=== PATIENT | female | born 1970 | race Caucasian/White ===

== ENCOUNTER 2020-04-19 08:29 | Day surgery (SDC) | payer OTHER ==
[~2020-04-19] VITALS: Ht 162.6 cm; Wt 93.9 kg
--- NOTE | ~2020-04-19 | OR ---
[facility] [address], [place] [address] Draft DATE OF OPERATION: 04/19/2020 SURGEON: Marizol Huddleston MD PREOPERATIVE DIAGNOSES: 1. Gastroesophageal reflux symptoms with episodic dysphagia. 2. History of tubular adenoma of colon, 2015. POSTOPERATIVE DIAGNOSES: 1. Mild antral gastritis, no evidence of esophagitis, stricture, or Frye's epithelium; poor flap valve. No sign of hiatal hernia proper. 2. Normal colon to cecum. PROCEDURES: 1. Esophagogastroduodenoscopy with biopsy. 2. Total colonoscopy to cecum. ANESTHESIA: Intravenous sedation, fentanyl 150 mcg and Versed 7 mg total. INDICATION: This 49-year-old white woman is a patient of VALENCIA Machuca. She is known to me from the past having undergone colonoscopy in 2014 at which time she was noted to have a tubular adenoma, which was excised. She has no symptoms of bleeding, diarrhea or constipation and is here for surveillance colonoscopy. Additionally, patient does have clinical symptoms suggestive of gastroesophageal reflux, which she occasionally has mild dysphagia. She occasionally takes an [id number] H2 navid, but does not take anything on a routine basis. Notably, her father had Frye's esophagus. She has no family history of colon cancer, esophageal cancer or stomach cancer. She is admitted to undergo upper endoscopy and colonoscopy. She understands the risks of bleeding, infection, and perforation. FINDINGS: On upper endoscopy, she had no evidence of stricture. There was no Frye's epithelium. There were no stigmata of eosinophilic esophagitis. There was some bile in the stomach and mild antral gastritis and the pylorus and the duodenum were normal. Colonoscopy performed showed no sign of abnormality of any sort. She had an excellent prep. PATIENT NAME: GRAHAM HENDERSON OPERATIVE REPORT DATE OF : 72 REPORT #: [id number] PHYSICIAN: MARIZOL HUDDLESTON MD PCP: MATTIE BELLE REPORT IS CONFIDENTIAL AND NOT TO BE RELEASED WITHOUT AUTHORIZATION [facility] [address], [place] [address] Draft DESCRIPTION OF PROCEDURE: The patient was brought to endoscopy suite, given topical Hurricaine spray hypopharyngeal anesthesia, placed in lateral decubitus position. She was given intravenous sedation to the point of slurred speech and nystagmus with full cardiopulmonary monitoring. A bite block was placed. An Olympus video upper endoscope was passed in the hypopharynx. The vocal cords appeared normal. Scope was advanced to the esophagus throughout its length, it was normal with no sign of stricture or neoplasm or Frye's epithelium. The scope was passed to the stomach, which was insufflated with air with some bilious fluid, which was suctioned free. Rugal folds appeared normal as did the antral motility. The pylorus was normal and scope was passed through into the duodenum, which was normal. Biopsies were obtained there to assess for celiac disease. The scope was withdrawn. A biopsy was then taken of the antrum for both NEDRA and pathologic testing. She had mild and minimal antral gastritis. Retroflexed view was undertaken showing a rather poor flap valve, but no hiatal hernia proper. Scope was straightened and withdrawn and biopsies taken of the distal esophagus and withdrawn to the mid esophagus for biopsies there as well. Further withdrawal of scope showed no sign of abnormality. Plans were then made for colonoscopy. Additional sedation was given. A digital rectal examination was performed, which showed no sign of abnormality. The Olympus video colonoscope was passed in the rectum and then manipulated throughout the colon. Ultimately intubating the cecum, the ileocecal valve and appendiceal orifice were normal. Scope was withdrawn from that point and examination throughout showed no sign of polyps, diverticular formation, colitis, or cancer. Retroflex view of the rectum was normal. Scope was removed. The patient was taken to the recovery room in good condition. CONCLUDING DIAGNOSES: 1. Mild antral gastritis, possibly bile reflux related. 2. Clinical gastroesophageal reflux without sign of stricture, neoplasm or Frye's epithelium. 3. Normal colon to cecum. PLAN: Recommend a repeat colonoscopy in 5 to 10 years sooner if clinically indicated. Consider episodic use of H2 navid or PPI for reflux type symptoms. Weight loss would be beneficial. She will return to the ongoing care of VALENCIA Machuca. PATIENT NAME: GRAHAM HENDERSON OPERATIVE REPORT DATE OF : 72 REPORT #: [id number] PHYSICIAN: MARIZOL HUDDLESTON MD PCP: MATTIE BELLE REPORT IS CONFIDENTIAL AND NOT TO BE RELEASED WITHOUT AUTHORIZATION [address] [address] Draft MD DONI Adams/MEDINAL /[id number] cc: VALENCIA Machuca Copies: MATTIE BELLE ~ PATIENT NAME: GRAHAM HENDERSON OPERATIVE REPORT DATE OF : 72 REPORT #: [id number] PHYSICIAN: MARIZOL HUDDLESTON MD PCP: MATTIE BELLE REPORT IS CONFIDENTIAL AND NOT TO BE RELEASED WITHOUT AUTHORIZATION
[~2020-04-19 08:29] MED LIST: ALPRAZOLAM2 MG PO; CYCLOBENZAPRINE10 MG PO; ESTRADIOL2 MG PO; SERTRALINE HCL50 MG PO; SUMATRIPTAN SU100 MG PO; VENLAFAXINE HC150 MG PO
[2020-04-19] MEDS ORDERED: NAPROXEN500 MG PO (09:08)
--- NOTE | 2020-04-19 10:12 | NUR ---
04/19/20 1012 Romana Casper 1007 PATIENT ARRIVES TO PACU AWAKE BUT DROWSY. RESP EVEN AND UNLABORED. ROOM AIR SATS >95%. PATIENT DENIES PAIN OR NAUSEA. PASSING GAS.
--- NOTE | 2020-04-22 12:05 | PATH ---
[facility] [address], [place] [address] Signed SPECIMEN(S): A DUODENUM SPECIMEN(S): B ANTRUM/PYLORUS SPECIMEN(S): C LOWER ESOPHAGUS SPECIMEN(S): D MIDDLE ESOPHAGUS SPECIMEN SOURCE: A. DUODENUM B. ANTRUM/PYLORUS C. LOWER ESOPHAGUS D. MIDDLE ESOPHAGUS CLINICAL HISTORY: Colonoscopy. Reflux. History of tubular adenoma. MICROSCOPIC DESCRIPTION: Histologic sections of all submitted blocks are examined by light microscopy. These findings, together with the gross examination, support the pathologic diagnosis. FINAL PATHOLOGIC DIAGNOSIS: A. Duodenum, biopsy: - Duodenal mucosa with mild Abhishek's gland hyperplasia. - Negative for dysplasia or malignancy. B. Stomach, antrum/pylorus, biopsy: - Antral and oxyntic mucosa with focal mild chronic, inactive gastritis. - Negative for Helicobacter organisms. - Negative for dysplasia or malignancy. C. Esophagus, lower, biopsy: - Squamous mucosa with no histopathologic abnormality. - Negative for intestinal metaplasia, dysplasia, or malignancy. D. Esophagus, middle, biopsy: - Squamous mucosa with no histopathologic abnormality. - Negative for intestinal metaplasia, dysplasia, or malignancy. NAL:cml:C2NR GROSS DESCRIPTION: Four specimens are received in four containers, labeled "MH." A. The specimen, labeled "MH," and designated on the requisition "duodenum biopsy," is received in formalin and consists of two fragments of pink-gayle tissue (0.5 x 0.3 x 0.2 cm in aggregate). The specimen is submitted entirely in cassette (A1). B. The specimen, labeled "MH," and designated on the requisition PATIENT NAME: GRAHAM HENDERSON PATHOLOGY DATE OF : 72 REPORT #: [id number] PHYSICIAN: KATHLEEN CHAU PCP: MATTIE BELLE REPORT IS CONFIDENTIAL AND NOT TO BE RELEASED WITHOUT AUTHORIZATION [facility] [address], [place] [address] Signed "antrum/pylorus biopsy," is received in formalin and consists of two fragments of pink-gayle tissue (0.4 x 0.3 x 0.2 cm). The specimen is submitted entirely in cassette (B1). C. The specimen, labeled "MH," and designated on the requisition "lower esophagus biopsy," is received in formalin and consists of three fragments of white-gayle tissue (0.5 x 0.4 x 0.2 cm in aggregate). The specimen is submitted entirely in cassette (C1). D. The specimen, labeled "MH," and designated on the requisition "middle esophagus biopsy," is received in formalin and consists of one fragment of white-gayle tissue (0.3 x 0.3 x 0.2 cm). The specimen is submitted entirely in cassette (D1). AC (under the direct supervision of a pathologist) The Gross Description was prepared using a voice recognition system. The report was reviewed for accuracy; however, sound-alike word errors, addition and/or deletions may occur. If there is any question about this report, please contact Client Services. PERFORMING LABORATORY: The technical component was performed by [facility], [address] [place] [id number] (Surveillance Analyst: Jennifer Lorenz MD; CLIA# [id number]). [facility], [address] [address] (IA# [id number]). Diagnostician: Alem Posey MD Pathologist Electronically Signed 04/22/2020 Copies: ~ PATIENT NAME: GRAHAM HENDERSON PATHOLOGY DATE OF : 72 REPORT #: [id number] PHYSICIAN: KATHLEEN PATHOLOGY PCP: MATTIE BELLE REPORT IS CONFIDENTIAL AND NOT TO BE RELEASED WITHOUT AUTHORIZATION
== END 2020-04-19 10:30 | disposition home or self-care (01) ==
LOC: DS 08:29 → OPS 08:29 → DS 09:30 → OPS 10:30
PROVIDERS: ATTEND Surgery
PROC: 0DB28ZX Excision of Middle Esophagus, Via Natural or Artificial Opening Endoscopic, Diagnostic (ICD-10-PCS; 2020-04-19)
PROC: 0DB38ZX Excision of Lower Esophagus, Via Natural or Artificial Opening Endoscopic, Diagnostic (ICD-10-PCS; 2020-04-19)
PROC: 0DJD8ZZ Inspection of Lower Intestinal Tract, Via Natural or Artificial Opening Endoscopic (ICD-10-PCS; 2020-04-19)
PROC: 0DB98ZX Excision of Duodenum, Via Natural or Artificial Opening Endoscopic, Diagnostic (ICD-10-PCS; principal; 2020-04-19 09:30)
PROC: 0DB78ZX Excision of Stomach, Pylorus, Via Natural or Artificial Opening Endoscopic, Diagnostic (ICD-10-PCS; 2020-04-19 09:30)
DX: Z12.11 Encounter for screening for malignant neoplasm of colon (principal); K29.50 Unspecified chronic gastritis without bleeding; K21.9 Gastro-esophageal reflux disease without esophagitis; F41.9 Anxiety disorder, unspecified; F32.9 Major depressive disorder, single episode, unspecified; E66.9 Obesity, unspecified; F17.210 Nicotine dependence, cigarettes, uncomplicated; Z86.010 Personal history of colon polyps; Z88.8 Allergy status to other drugs, medicaments and biological substances; Z79.899 Other long term (current) drug therapy; Z98.890 Other specified postprocedural states; Z68.35 Body mass index [BMI] 35.0-35.9, adult
CPT/HCPCS: 99153; G0500; J2250; J3010; J7121

== ENCOUNTER 2020-08-13 08:15 | Emergency (ER) | payer OTHER ==
[~2020-08-13] VITALS: Ht 162.6 cm; Wt 93.9 kg
[~2020-08-13 08:15] MED LIST changes: +NAPROXEN500 MG PO
[2020-08-13] MEDS ORDERED: AMITRIPTYLINE100 MG PO (09:03)
[2020-08-13] MEDS ORDERED: MELOXICAM15 MG PO (09:04)
[2020-08-13] MEDS ORDERED: NAPROSYN500 MG PO (10:32)
[2020-08-13] MEDS ORDERED: CRUTCH1 EACH (10:34)
== END 2020-08-13 10:56 | disposition home or self-care (01) ==
LOC: ED 08:15
DX: M71.21 Synovial cyst of popliteal space [Baker], right knee (principal); F17.200 Nicotine dependence, unspecified, uncomplicated; Z88.2 Allergy status to sulfonamides; Z88.1 Allergy status to other antibiotic agents; Z79.899 Other long term (current) drug therapy
CPT/HCPCS: 93971; 99283-25